=== PATIENT | male | born 1965 | race Caucasian/White ===

== ENCOUNTER → 2020-04-28 | Day surgery (SDC) | payer OTHER ==
[~2020-04-28] MED LIST: ALLEGRA ALLERG180 MG PO; INDOCIN SR75 MG PO; LEXAPRO 10MG TA10 MG PO; NORCO 5-325 TA1 EACH PO
[2020-04-28 07:29] LABS: HCT 42.4 % (42.0-52.0); HGB 13.3 g/dl (13.2-18.0); MCH 26.1 pg (25.0-31.0); MCHC 31.4 g/dL (32.0-36.0); MCV 83.1 fL (78.0-100.0); MPV 10.3 fL (6.0-9.5); RBC 5.1 M/uL (4.70-6.00); WBC 6.8 K/uL (4.0-10.5)
[2020-04-28 07:54] LABS: BILIRUBIN - TOTAL 1.3 mg/dL (0.2-1.0); BUN/CREAT RATIO (CALC) 8.3 RATIO; CREATININE 1.56 mg/dL (0.67-1.17); GLOBULIN (CALCULATION) 3.9 g/dL; POTASSIUM 3.8 mmol/L (3.5-5.1); TOTAL PROTEIN 7.9 g/dL (6.4-8.2)
== END | disposition home or self-care (01) ==
LOC: FAS 06:50
PROVIDERS: Surgery
DX: K63.5 Polyp of colon (principal); K62.0 Anal polyp; K64.1 Second degree hemorrhoids; K64.4 Residual hemorrhoidal skin tags; I12.9 Hypertensive chronic kidney disease with stage 1 through stage 4 chronic kidney disease, or unspecified chronic kidney disease; N18.9 Chronic kidney disease, unspecified; E78.5 Hyperlipidemia, unspecified; E66.9 Obesity, unspecified; F41.9 Anxiety disorder, unspecified; Z87.39 Personal history of other diseases of the musculoskeletal system and connective tissue; Z86.69 Personal history of other diseases of the nervous system and sense organs; Z90.5 Acquired absence of kidney; Z80.0 Family history of malignant neoplasm of digestive organs; Z20.822 Contact with and (suspected) exposure to COVID-19; Z87.891 Personal history of nicotine dependence
CPT/HCPCS: 36415; 80053; J1100; J2250; J2370; J7120

== ENCOUNTER 2021-12-11 10:37 | Emergency (ER) | payer OTHER ==
[~2021-12-11] VITALS: Ht 195.6 cm; Wt 127.0 kg
[2021-12-11 11:47] LABS: BASOPHIL 1.8 % (0-2); EOSINOPHIL 0.1 % (0-5); HCT 53.1 % (42.0-52.0); MCH 29.9 pg (25.0-31.0); MCHC 33.9 g/dL (32.0-36.0); MCV 88.1 fL (78.0-100.0); MONOCYTE 4.7 % (0-12); NEUTROPHIL 79.5 % (41-80); NRBC 0; PLT 248 K/uL (150-400); RBC 6.03 M/uL (4.70-6.00); RDW 13.9 % (11.5-14.0); WBC 10.6 K/uL (4.0-10.5)
[2021-12-11 11:57] LABS: ALBUMIN 4.3 g/dL (3.4-5.0); BILIRUBIN - TOTAL 1.2 mg/dL (0.2-1.0); BUN/CREAT RATIO (CALC) 10.3 RATIO; CREATININE 1.45 mg/dL (0.67-1.17); GLOBULIN (CALCULATION) 3.8 g/dL; POTASSIUM 3.3 mmol/L (3.5-5.1); TOTAL PROTEIN 8.1 g/dL (6.4-8.2)
== END 2021-12-11 18:45 | disposition other institution (70) ==
LOC: FER 10:37
PROVIDERS: Emergency Medicine
DX: M48.061 Spinal stenosis, lumbar region without neurogenic claudication (principal)
CPT/HCPCS: 36415; 70450; 72131; 80053; 85025; J2270; J2405